=== PATIENT | female | born 1955 | race Caucasian/White ===

== ENCOUNTER 2022-12-09 11:53 | Inpatient (IN) | payer MEDICARE ==
[~2022-12-09] VITALS: Ht 170.2 cm; Wt 56.8 kg
[2022-12-09] VITALS (22 sets, daily range): BP systolic 102–138; BP diastolic 67–95
[2022-12-09] MEDS ORDERED: normal saline 1,000 ML IV SCH (12:15)
[2022-12-09] MEDS ORDERED: diphenhydrAMINE 25mg capsule PO PRN (12:15)
[2022-12-09] MEDS ORDERED: LORazepam 0.5 MG tablet PO PRN (12:15)
[2022-12-09] MEDS ORDERED: HYDR12.55 PO (12:35)
[2022-12-09] MEDS ORDERED: CARV12.5 PO (12:35)
[2022-12-09] MEDS ORDERED: ATOR20TA66 PO (12:35)
[2022-12-09] MEDS ORDERED: ASPI81TA52 PO (12:35)
[2022-12-09] MEDS ORDERED: potassium PO (12:35)
[2022-12-09 13:32] LABS: BASOPHILS % (AUTO) 0.6 % (0-1); EOSINOPHILS # (AUTO) 0.1 X10'3 (0-0.9); EOSINOPHILS % (AUTO) 0.8 % (0-6); HEMATOCRIT 41.3 % (35.0-45.0); HEMOGLOBIN 13.4 g/dl (12.0-16.0); LYMPHOCYTES # (AUTO) 1.8 X10'3 (1.1-4.8); LYMPHOCYTES % (AUTO) 25.7 % (21-51); MEAN CORPUSCULAR HEMOGLOBIN 26.6 PG (27.0-31.0); MEAN CORPUSCULAR HGB CONC 32.4 g/dL (33.0-36.5); MEAN CORPUSCULAR VOLUME 82.2 FL (78-98); MEAN PLATELET VOLUME 10.1 FL (7.4-10.4); MONOCYTES # (AUTO) 0.5 X10'3 (0-0.9); MONOCYTES % (AUTO) 7.4 % (2-12); NEUTROPHILS # (AUTO) 4.5 X10'3 (1.8-7.7); NEUTROPHILS % (AUTO) 65.5 % (42-75); PLATELET COUNT 214 X10'3 (140-440); RED BLOOD COUNT 5.03 X10'6 (4.20-5.60); RED CELL DISTRIBUTION WIDTH 15.7 % (11.5-14.5); WHITE BLOOD COUNT 6.9 X10'3 (4.5-11.0)
[2022-12-09 13:40] LABS: ALBUMIN 3.5 G/DL (3.4-5.0); ANION GAP 9 (8-16); BLOOD UREA NITROGEN 20 MG/DL (7-18); BUN/CREATININE RATIO 16.5 (6.6-38.0); CHLORIDE 106 MMOL/L (99-107); CREATININE 1.21 MG/DL (0.40-0.90); GLUCOSE 130 MG/DL (70-104); POTASSIUM 3.3 MMOL/L (3.5-5.1); SODIUM 142 MMOL/L (135-145); TOTAL CARBON DIOXIDE 27.5 MMOL/L (24-32); eGFR 44 ML/MIN
[2022-12-09] MEDS ORDERED: verapamil 2.5 mg/ml inj IV ONE (13:46)
[2022-12-09] MEDS ORDERED: fentaNYL/PF 50MCG/1 ML 2ML syringe ONE (13:46)
[2022-12-09] MEDS ORDERED: midazolam 1 mg/ML 2ml injection ONE (13:46)
[2022-12-09] MEDS ORDERED: nitroGLYCERIN-Tridil 50MG/D5W 250 ML IV ONE (13:46)
[2022-12-09] MEDS ORDERED: heparin 1,000unit/ml 10ml vial 10 ML ONE (13:46)
[2022-12-09] MEDS ORDERED: iohexol 350 MG/ML 50ML vial IV ONE (13:46)
[2022-12-09] MEDS ORDERED: iohexol 350MG/ML 100ml bottle IV ONE (13:46)
[2022-12-09] MEDS ORDERED: LIDOcaine 1% (10mg/ml) 2ml vial ONE (13:46)
[2022-12-09 14:10] LABS: MAGNESIUM 1.8 MG/DL (1.5-2.4)
[2022-12-09] MEDS ORDERED: DOBUTamine-DoBUTrex 500mg/D5W 250 ML IV ONE (14:33)
[2022-12-09] MEDS ORDERED: furosemide 40mg/4ml inj ONE (15:41)
[2022-12-09] MEDS: furosemide 20 MG/2 ML vial IV SCH ×2 (15:45→19:12)
[2022-12-09 15:46] LABS: ISTAT HGB ART 12.9 g/dl (12.0-16.0); ISTAT Hct ART 38 %PCV (35-45); ISTAT O2 SATURATION ARTERIAL 95 % (95-98); ISTAT SOURCE ART
[2022-12-09] MEDS ORDERED: DOBUTamine 2000 MCG/250ML BAG IV SCH ×2 (16:10→18:00)
[2022-12-09] MEDS ORDERED: potassium Cl 20 mEq SR tablet PO ONE (16:15)
[2022-12-09] MEDS ORDERED: CARV6.253 PO (17:14)
[2022-12-09] MEDS ORDERED: POTA10CA45 PO (17:29)
--- NOTE | 2022-12-09 19:35 | NUR ---
Report given to Ingrid VARGAS. Patient transferred to PCU room 3009 in stable condition.
[2022-12-09] MEDS: carVEDilol 3.125mg tablet PO SCH (19:58)
[2022-12-09] MEDS ORDERED: potassium chloride 10mEq ER tablet PO SCH (20:00)
[2022-12-10] VITALS (17 sets, daily range): BP systolic 86–123; BP diastolic 54–81
[2022-12-10 06:11] LABS: BASOPHILS # (AUTO) 0.1 X10'3 (0-0.2); BASOPHILS % (AUTO) 1.4 % (0-1); EOSINOPHILS # (AUTO) 0.1 X10'3 (0-0.9); EOSINOPHILS % (AUTO) 0.7 % (0-6); HEMATOCRIT 41.4 % (35.0-45.0); HEMOGLOBIN 13.4 g/dl (12.0-16.0); LYMPHOCYTES # (AUTO) 1.7 X10'3 (1.1-4.8); LYMPHOCYTES % (AUTO) 21.3 % (21-51); MEAN CORPUSCULAR HEMOGLOBIN 26.6 PG (27.0-31.0); MEAN CORPUSCULAR HGB CONC 32.5 g/dL (33.0-36.5); MEAN CORPUSCULAR VOLUME 81.8 FL (78-98); MEAN PLATELET VOLUME 9.8 FL (7.4-10.4); MONOCYTES # (AUTO) 0.6 X10'3 (0-0.9); MONOCYTES % (AUTO) 8.2 % (2-12); NEUTROPHILS # (AUTO) 5.4 X10'3 (1.8-7.7); NEUTROPHILS % (AUTO) 68.4 % (42-75); PLATELET COUNT 211 X10'3 (140-440); RED BLOOD COUNT 5.06 X10'6 (4.20-5.60); RED CELL DISTRIBUTION WIDTH 15.5 % (11.5-14.5); WHITE BLOOD COUNT 7.9 X10'3 (4.5-11.0)
[2022-12-10 06:32] LABS: ALANINE AMINOTRANSFERASE 32 U/L (12-78); ALBUMIN 3.3 G/DL (3.4-5.0); ALBUMIN/GLOBULIN RATIO 1.3 (1.1-1.5); ALKALINE PHOSPHATASE 83 IU/L (46-116); ANION GAP 7 (8-16); ASPARTATE AMINO TRANSFERASE 14 U/L (10-37); BILIRUBIN,TOTAL 1.6 MG/DL (0.1-1.0); BLOOD UREA NITROGEN 17 MG/DL (7-18); CALCIUM 9.2 MG/DL (8.5-10.1); CHLORIDE 106 MMOL/L (99-107); CHOL/HDL RATIO 2.9 (0.00-4.99); CHOLESTEROL 145 MG/DL (0-200); CREATININE 1.21 MG/DL (0.40-0.90); GLUCOSE 110 MG/DL (70-104); HDL CHOLESTEROL 50 MG/DL (35-60); LDL CHOLESTEROL 73 MG/DL (50-100); POTASSIUM 3.9 MMOL/L (3.5-5.1); SODIUM 143 MMOL/L (135-145); TOTAL CARBON DIOXIDE 29.6 MMOL/L (24-32); TOTAL PROTEIN 5.8 G/DL (6.4-8.2); TRIGLYCERIDES 93 MG/DL (20-135); eGFR 44 ML/MIN
--- NOTE | 2022-12-10 06:38 | NUR ---
Patient in room PCU 3009. I have received report from ALICIA JOSUE, and had the opportunity to ask questions and assume patient care.
--- NOTE | 2022-12-10 06:40 | NUR ---
Patient in room PCU 3009. I have received report from ALICIA Quintero and had the opportunity to ask questions and assume patient care.
[2022-12-10] MEDS: atorvastatin 20mg tablet PO SCH (07:28)
[2022-12-10] MEDS: HYDROchlorothiazide 12.5mg capsule PO SCH (07:29)
[2022-12-10] MEDS: EMPAGLIFLOZIN 10 MG TABLET PO SCH (07:29)
[2022-12-10] MEDS: losartan 25mg tablet PO SCH (07:29)
[2022-12-10] MEDS: aspirin 81mg, enteric-coated 1 TAB TABLET.DR PO SCH (07:29)
[2022-12-10] MEDS: carVEDilol 3.125mg tablet PO SCH (07:29)
[2022-12-10] MEDS: furosemide 20 MG/2 ML vial IV SCH (07:30)
[2022-12-10] MEDS ORDERED: POTASSIUM PO SCH (08:00)
[2022-12-10] MEDS ORDERED: carvedilol 6.25mg tablet PO SCH (08:00)
[2022-12-10] MEDS ORDERED: spironolactone 25 MG tablet PO SCH (08:30)
[2022-12-10] MEDS ORDERED: SPIR25TA PO (09:51)
[2022-12-10] MEDS ORDERED: FURO10VI51 IV (09:51)
[2022-12-10] MEDS ORDERED: LOSA25TA41 PO (09:51)
[2022-12-10] MEDS ORDERED: COR3.125T PO (09:51)
[2022-12-10] MEDS ORDERED: EMPA10TA PO (09:51)
[2022-12-10] MEDS ORDERED: furosemide 10 MG/1 ML 10ml inj IV ONE (10:05)
--- NOTE | 2022-12-10 14:31 | NUR ---
PAGE SENT PAGER ID: [phone] MESSAGE: [id number], DON HENAO, PT'S BP IS GOING DOWN, 76/41, 85/57, MANUAL BP 90/54. HR IS GOOD, 70-80'S. THANK YOU, MARTINE [phone] Addendum: 12/10/22 at 1434 by Martine Tejeda RN RECEIVED TO RESTART DOBUTAMINE GTT AT 3MCG/KG/MIN. AND TO NOTIFY DR. KRAUSE
[2022-12-10] MEDS: DOBUTamine-DoBUTrex 500mg/D5W 250 ML IV SCH (14:37)
--- NOTE | 2022-12-10 14:58 | NUR ---
MESSAGE LEFT WITH DR. KRAUSE'S CALL SERVICE NOTIFIED THAT DOBUTAMINE GTT IS AT 3
--- NOTE | 2022-12-10 18:32 | NUR ---
Problems reprioritized. Patient report given, questions answered & plan of care reviewed with Vickie VARGAS.
--- NOTE | 2022-12-10 18:51 | NUR ---
Student documentation: I have reviewed and agree with all interventions, assessments performed and documented by SN BRIGIDA.
--- NOTE | 2022-12-10 18:51 | NUR ---
Problems reprioritized. Patient report given, questions answered & plan of care reviewed with ALICIA MERCEDES.
--- NOTE | 2022-12-10 18:55 | NUR ---
StStudent documentation: I have reviewed and agree with all interventions, assessments performed and documented by SN BRIGIDA.
[2022-12-11] VITALS (15 sets, daily range): BP systolic 68–114; BP diastolic 49–89
--- NOTE | 2022-12-11 00:42 | NUR ---
Earlier in the shift I received a call from [facility] and they said they are unable to transfer pt to [facility] and that they would re- assess the weather in the am for transporting her. I called [facility] at report phone number I had and relayed the information to staff and I asked them to talk to transfer unit and please hold the bed for patient. I also told the pt that she is not going anywhere [facility] and I also told the pt's nurse about this.
[2022-12-11] MEDS: DOBUTamine-DoBUTrex 500mg/D5W 250 ML IV SCH (03:37)
--- NOTE | 2022-12-11 06:24 | NUR ---
Patient in room PCU 3009. I have received report from ALICIA Negrete and had the opportunity to ask questions and assume patient care.
--- NOTE | 2022-12-11 06:39 | NUR ---
Patient in room PCU 3009. I have received report from ALICIA MERCEDES, and had the opportunity to ask questions and assume patient care.
[2022-12-11] MEDS ORDERED: furosemide 20 MG/2 ML vial IV SCH (08:00)
[2022-12-11] MEDS: HYDROchlorothiazide 12.5mg capsule PO SCH (08:43)
[2022-12-11] MEDS: aspirin 81mg, enteric-coated 1 TAB TABLET.DR PO SCH (08:43)
[2022-12-11] MEDS: atorvastatin 20mg tablet PO SCH (08:44)
[2022-12-11] MEDS: EMPAGLIFLOZIN 10 MG TABLET PO SCH (08:45)
[2022-12-11] MEDS: losartan 25mg tablet PO SCH (08:45)
[2022-12-11 09:24] LABS: HEMATOCRIT 44.4 % (35.0-45.0); HEMOGLOBIN 14.6 g/dl (12.0-16.0); MEAN CORPUSCULAR HEMOGLOBIN 26.9 PG (27.0-31.0); MEAN CORPUSCULAR HGB CONC 32.9 g/dL (33.0-36.5); MEAN CORPUSCULAR VOLUME 81.8 FL (78-98); PLATELET COUNT 218 X10'3 (140-440); RED BLOOD COUNT 5.42 X10'6 (4.20-5.60); RED CELL DISTRIBUTION WIDTH 15.5 % (11.5-14.5); WHITE BLOOD COUNT 7.9 X10'3 (4.5-11.0)
[2022-12-11 09:30] LABS: ALANINE AMINOTRANSFERASE 28 U/L (12-78); ALBUMIN 3.6 G/DL (3.4-5.0); ALBUMIN/GLOBULIN RATIO 1.3 (1.1-1.5); ALKALINE PHOSPHATASE 83 IU/L (46-116); ANION GAP 8 (8-16); ASPARTATE AMINO TRANSFERASE 12 U/L (10-37); BILIRUBIN,TOTAL 1.6 MG/DL (0.1-1.0); BLOOD UREA NITROGEN 20 MG/DL (7-18); BUN/CREATININE RATIO 14.2 (6.6-38.0); CALCIUM 9.6 MG/DL (8.5-10.1); CHLORIDE 104 MMOL/L (99-107); CREATININE 1.41 MG/DL (0.40-0.90); GLUCOSE 104 MG/DL (70-104); PHOSPHORUS 4.2 MG/DL (2.3-4.5); POTASSIUM 3.5 MMOL/L (3.5-5.1); SODIUM 141 MMOL/L (135-145); TOTAL CARBON DIOXIDE 28.8 MMOL/L (24-32); TOTAL PROTEIN 6.4 G/DL (6.4-8.2); eGFR 37 ML/MIN
[2022-12-11] MEDS ORDERED: carVEDilol 3.125mg tablet PO SCH (10:00)
--- NOTE | 2022-12-11 13:27 | NUR ---
Page sent PAGER ID: [phone] MESSAGE: [phone], Ruth Ann Farrell. Recent BP's 82/52, readjusted BP cuff, 78/53. Raymond BP 68/50. Thank you, Laura Henderson RN [phone] Addendum: 12/11/22 at 1338 by Laura Cameron - Student -CHRIST Martine spoke with Dr. Youssef. Called Dr. Nieves per . Waiting for call.
--- NOTE | 2022-12-11 13:36 | NUR ---
DR. WASHINGTON NOTIFIED OF PT'S LOW BP, DR. WASHINGTON SAID TO NOTIFY DR. KRAUSE. MESSAGE LEFT WITH ANSWERING SERVICE.
[2022-12-11] MEDS ORDERED: DOBUTamine-DoBUTrex 500mg/D5W 250 ML IV SCH (15:15)
[2022-12-11] MEDS ORDERED: spironolactone 25 MG tablet PO SCH (16:00)
--- NOTE | 2022-12-11 18:09 | NUR ---
Problems reprioritized. Patient report given, questions answered & plan of care reviewed with [employer].
--- NOTE | 2022-12-11 18:58 | NUR ---
PT STABLE FOR TRANSFER PER MD. BELONGINGS GATHERED AND SENT WITH PT. PT REPORTS SHE NOTIFIED FAMILY OF HER TRANSFER. REPORT GIVEN TO ALICIA GUPTA, TRANSPORT NURSE. REPORT PHONED TO ALICIA MCDUFFIE AT [place]. REPORT GIVEN TO [facility] AND CD SENT WITH THEM. PT WAS ON A DOBUTAMINE GTT, 5MCG/KG/MIN.
--- NOTE | 2022-12-11 19:01 | NUR ---
Student documentation: I have reviewed and agree with all interventions, assessments performed and documented by SN BRIGIDA.
--- NOTE | 2022-12-11 19:01 | NUR ---
Student Medication Administration: For this medication-pass time frame, all medication were reviewed, dispensed, administered and documented per hospital policy by SN BRIGIDA.
[2022-12-12 07:08] LABS: ISTAT Hct MIX 38 %PCV (35-45); ISTAT O2 SATURATION MIX VENOUS 67 % (60-80); ISTAT SOURCE VEN
== END 2022-12-11 20:37 | disposition critical access hospital (66) | DRG 287 ==
LOC: SSTAY O 11:53 → PCU 3S 19:11
PROVIDERS: ADMIT Family Medicine; ATTEND Internal Medicine Cardiovascular Disease
PROC: 4A023N8 Measurement of Cardiac Sampling and Pressure, Bilateral, Percutaneous Approach (ICD-10-PCS; principal; 2022-12-09)
PROC: B2111ZZ Fluoroscopy of Multiple Coronary Arteries using Low Osmolar Contrast (ICD-10-PCS; 2022-12-09)
PROC: B2151ZZ Fluoroscopy of Left Heart using Low Osmolar Contrast (ICD-10-PCS; 2022-12-09)
PROC: B31N1ZZ Fluoroscopy of Other Upper Arteries using Low Osmolar Contrast (ICD-10-PCS; 2022-12-09)
DX: I25.10 Atherosclerotic heart disease of native coronary artery without angina pectoris (principal); I50.22 Chronic systolic (congestive) heart failure; I13.0 Hypertensive heart and chronic kidney disease with heart failure and stage 1 through stage 4 chronic kidney disease, or unspecified chronic kidney disease; N17.9 Acute kidney failure, unspecified; Z20.822 Contact with and (suspected) exposure to COVID-19; I08.0 Rheumatic disorders of both mitral and aortic valves; N18.9 Chronic kidney disease, unspecified; E87.6 Hypokalemia; I95.9 Hypotension, unspecified; I25.82 Chronic total occlusion of coronary artery; E78.5 Hyperlipidemia, unspecified; J44.9 Chronic obstructive pulmonary disease, unspecified; I25.5 Ischemic cardiomyopathy; Z79.84 Long term (current) use of oral hypoglycemic drugs; Z87.891 Personal history of nicotine dependence; Z79.82 Long term (current) use of aspirin; Z79.899 Other long term (current) drug therapy
CPT/HCPCS: 36415; 71250; 80048; 80053; 80061; 82803; 83735; 83880; 84100; 85014; 85025; 85027; 85610; 87081; 87811; 93005; 93306; 93460; 99152; 99153; A4615; A6258; A6402; C1725; C1751; C1769; C1894; G0378; J1250; J1644; J1940; J2250; J3010; J3490; J7030; Q0163; Q9967